=== PATIENT | female | born 1950 | race Caucasian/White ===

== ENCOUNTER 2017-06-24 21:18 | Observation (INO) | payer MEDICARE ==
[2017-06-24] MEDS ORDERED: methylPREDNISolone 125 MG* 2 ML VIAL IV ONE (23:31)
[2017-06-24] MEDS ORDERED: Albuterol/Ipratropium NEB.SOL* Albuterol 2.5 MG/Ipratropium 0.5 MG 3 ML INH ONE (23:31)
[2017-06-25] MEDS ORDERED: Albuterol/Ipratropium NEB.SOL* Albuterol 2.5 MG/Ipratropium 0.5 MG 3 ML ONE (00:04)
[2017-06-25 00:12] LABS: Hematocrit 41 % (35-47); Hemoglobin 13.8 g/dl (12.0-16.0); Mean Corpuscular HGB Conc 33 g/dl (31-36); Mean Corpuscular Hemoglobin 28 pg (27-31); Mean Corpuscular Volume 85 fL (80-97); Mean Platelet Volume 9 um3 (7.4-10.4); Red Blood Count 4.85 10^6/ul (4.0-5.4); Red Cell Distribution Width 14 % (10.5-15); White Blood Count 6.8 10^3/ul (3.5-10.8)
[2017-06-25 00:27] LABS: Albumin 4.2 g/dL (3.2-5.2); BUN/Creatinine Ratio 12.3 (8-20); Calcium 9.3 mg/dL (8.6-10.3); EGFR Non-African American 79.3 (>60); Globulin 2.8 g/dL (2-4); Potassium 3.6 mmol/L (3.5-5.0); Total Bilirubin 0.4 mg/dL (0.2-1.0)
[2017-06-25 00:31] LABS: Troponin I 0.02 ng/mL (<0.04)
[2017-06-25 01:09] LABS: Urine Bilirubin Negative (Negative); Urine Glucose Negative (Negative); Urine Nitrite Negative (Negative)
[2017-06-25] MEDS ORDERED: Ondansetron INJ* 2 MG/ML VIAL IV PRN (01:49)
[2017-06-25] MEDS ORDERED: CMCS: Melatonin (NF) 3 MG TAB PO PRN (01:49)
[2017-06-25] MEDS ORDERED: Morphine INJ* 2 MG/ML 1 ML SYRINGE (TWO MG - NEW SYRINGE VERSION) IV PRN (01:49)
[2017-06-25] MEDS ORDERED: Albuterol 2.5 MG/3 ML NEB.SOL* (0.083%) INH PRN (01:49)
--- NOTE | 2017-06-25 02:09 | ED ---
Prabhjot Mancia Tiffany, scribed for Ariel Evangelista on 06/24/17 at 2334 . Complex/Multi-Sys Presentation - HPI Summary HPI Summary: This patient is a 66 year old F presenting to [facility] accompanied by with a chief complaint of cough with no production since ten days ago. The patient rates the pain 8/10 in severity. Symptoms aggravated by nothing. Symptoms alleviated by nothing. Patient reports throat pain, shortness of breath and chest pain. Patient denies fever and leg swelling. The patient is in end stage pulmonary fibrosis. The patient uses an oxygen tank at home. - History Of Current Complaint Chief Complaint: EDUpperRespComplaint Time Seen by Provider: 06/24/17 23:21 Hx Obtained From: Patient Onset/Duration: Lasting Days - 10, Still Present Aggravating Factor(s): Nothing Alleviating Factor(s): Nothing Associated Signs And Symptoms: Positive: Other - throat pain, shortness of breath and chest pain; NEGATIVE: fever and leg swelling - Allergies/Home Medications Allergies/Adverse Reactions: Allergies Allergy/AdvReac Type Severity Reaction Status Date / Time No Known Allergies Allergy Verified 05/20/14 13:37 PMH/Surg Hx/FS Hx/Imm Hx Previously Healthy: No Endocrine/Hematology History: Denies: Hx Diabetes Cardiovascular History: Denies: Hx Congestive Heart Failure, Hx Hypertension Respiratory History: Reports: Other Respiratory Problems/Disorders - HX PULMONARY FIBROSIS GI History: Reports: Hx Gastroesophageal Reflux Disease History: Denies: Hx Renal Disease Musculoskeletal History: Reports: Other Musculoskeletal History Denies: Hx Rheumatoid Arthritis, Hx Osteoporosis Sensory History: Reports: Hx Cataracts Denies: Hx Contacts or Glasses, Hx Hearing Aid Opthamlomology History: Reports: Hx Cataracts Denies: Hx Contacts or Glasses Psychiatric History: Reports: Hx Depression - Surgical History Surgery Procedure, Year, and Place: TUBAL, HYSTERECTOMY [facility]. 2003 RIGHT CATARACT [facility]. BRONCHOSCOPY WITH BX STRONG 2009. RIGHT CTR [facility]. BUNIONECTOMY Hx Anesthesia Reactions: No - Immunization History Date of Tetanus Vaccine: UNSURE Date of Influenza Vaccine: 2012 Infectious Disease History: No Infectious Disease History: Denies: Traveled Outside the [place] in Last 30 Days - Family History Known Family History: Positive: None - None given - Social History Alcohol Use: Weekly Alcohol Amount: 3-4/WEEK Hx Substance Use: No Substance Use Type: Reports: None Hx Tobacco Use: Yes Smoking Status (MU): Former Smoker Review of Systems Negative: Fever Positive: Sore Throat Positive: Chest Pain Positive: Shortness Of Breath, Cough - With no production Negative: Edema All Other Systems Reviewed And Are Negative: Yes Physical Exam - Summary Physical Exam Summary: Appearance: Well appearing, no pain distress Skin: warm, dry, reflects adequate perfusion Head/face: normal Eyes: EOMI, JESSIKA ENT: normal Neck: supple, non-tender Respiratory: Bilateral coarse repetitions, occasional wheeze bilateral Cardiovascular: RRR, pulses symmetrical Abdomen: non-tender, soft Bowel: present Musculoskeletal: normal, strength/ROM intact Neuro: normal, sensory motor intact, A&Ox3 Triage Information Reviewed: Yes Vital Signs On Initial Exam: Initial Vitals Temp Pulse Resp BP Pulse Ox 97 F 80 18 146/85 94 06/24/17 21:43 06/24/17 21:43 06/24/17 21:43 06/24/17 21:43 06/24/17 21:43 Vital Signs Reviewed: Yes Diagnostics - Vital Signs Vital Signs Temp Pulse Resp BP Pulse Ox 06/24/17 21:43 97 F 80 18 146/85 94 - Laboratory Lab Results: Lab Results 06/25/17 06/25/17 06/25/17 Range/Units 00:01 00:01 00:01 WBC 6.8 (3.5-10.8) 10^3/ul RBC 4.85 (4.0-5.4) 10^6/ul Hgb 13.8 (12.0-16.0) g/dl Hct 41 (35-47) % MCV 85 (80-97) fL MCH 28 (27-31) pg MCHC 33 (31-36) g/dl RDW 14 (10.5-15) % Plt Count 139 L (150-450) 10^3/ul MPV 9 (7.4-10.4) um3 Neut % (Auto) 58.2 (38-83) % Lymph % (Auto) 29.9 (25-47) % Morgan % (Auto) 9.8 H (1-9) % Eos % (Auto) 1.6 (0-6) % Baso % (Auto) 0.5 (0-2) % Absolute Neuts (auto) 4.0 (1.5-7.7) 10^3/ul Absolute Lymphs (auto) 2.0 (1.0-4.8) 10^3/ul Absolute Monos (auto) 0.7 (0-0.8) 10^3/ul Absolute Eos (auto) 0.1 (0-0.6) 10^3/ul Absolute Basos (auto) 0 (0-0.2) 10^3/ul Absolute Nucleated RBC 0 10^3/ul Nucleated RBC % 0.1 INR (Anticoag Therapy) (0.77-1.02) APTT (26.0-36.3) seconds D-Dimer, Quantitative (Less Than 230) ng/mL Sodium 138 (133-145) mmol/L Potassium 3.6 (3.5-5.0) mmol/L Chloride 103 (101-111) mmol/L Carbon Dioxide 28 (22-32) mmol/L Anion Gap 7 (2-11) mmol/L BUN 9 (6-24) mg/dL Creatinine 0.73 (0.51-0.95) mg/dL Est GFR ( Amer) 102.0 (>60) Est GFR (Non-Af Amer) 79.3 (>60) BUN/Creatinine Ratio 12.3 (8-20) Glucose 82 (70-100) mg/dL Lactic Acid (0.5-2.0) mmol/L Calcium 9.3 (8.6-10.3) mg/dL Total Bilirubin 0.40 (0.2-1.0) mg/dL AST 26 (13-39) U/L ALT 13 (7-52) U/L Alkaline Phosphatase 82 (34-104) U/L Troponin I 0.02 (<0.04) ng/mL B-Natriuretic Peptide 84 ( - 100) pg/mL Total Protein 7.0 (6.4-8.9) g/dL Albumin 4.2 (3.2-5.2) g/dL Globulin 2.8 (2-4) g/dL Albumin/Globulin Ratio 1.5 (1-3) Urine Color Urine Appearance Urine pH (5-9) Ur Specific [place] (1.010-1.030) Urine Protein (Negative) Urine Ketones (Negative) Urine Blood (Negative) Urine Nitrate (Negative) Urine Bilirubin (Negative) Urine Urobilinogen (Negative) Ur Leukocyte Esterase (Negative) Urine Glucose (Negative) 12/18/17 12/18/17 12/18/17 Range/Units 00:01 00:01 00:41 WBC (3.5-10.8) 10^3/ul RBC (4.0-5.4) 10^6/ul Hgb (12.0-16.0) g/dl Hct (35-47) % MCV (80-97) fL MCH (27-31) pg MCHC (31-36) g/dl RDW (10.5-15) % Plt Count (150-450) 10^3/ul MPV (7.4-10.4) um3 Neut % (Auto) (38-83) % Lymph % (Auto) (25-47) % Morgan % (Auto) (1-9) % Eos % (Auto) (0-6) % Baso % (Auto) (0-2) % Absolute Neuts (auto) (1.5-7.7) 10^3/ul Absolute Lymphs (auto) (1.0-4.8) 10^3/ul Absolute Monos (auto) (0-0.8) 10^3/ul Absolute Eos (auto) (0-0.6) 10^3/ul Absolute Basos (auto) (0-0.2) 10^3/ul Absolute Nucleated RBC 10^3/ul Nucleated RBC % INR (Anticoag Therapy) 0.96 (0.77-1.02) APTT 36.6 H (26.0-36.3) seconds D-Dimer, Quantitative < 200 (Less Than 230) ng/mL Sodium (133-145) mmol/L Potassium (3.5-5.0) mmol/L Chloride (101-111) mmol/L Carbon Dioxide (22-32) mmol/L Anion Gap (2-11) mmol/L BUN (6-24) mg/dL Creatinine (0.51-0.95) mg/dL Est GFR ( Amer) (>60) Est GFR (Non-Af Amer) (>60) BUN/Creatinine Ratio (8-20) Glucose (70-100) mg/dL Lactic Acid 1.1 (0.5-2.0) mmol/L Calcium (8.6-10.3) mg/dL Total Bilirubin (0.2-1.0) mg/dL AST (13-39) U/L ALT (7-52) U/L Alkaline Phosphatase (34-104) U/L Troponin I (<0.04) ng/mL B-Natriuretic Peptide ( - 100) pg/mL Total Protein (6.4-8.9) g/dL Albumin (3.2-5.2) g/dL Globulin (2-4) g/dL Albumin/Globulin Ratio (1-3) Urine Color Colorless Urine Appearance Clear Urine pH 6.0 (5-9) Ur Specific [place] 1.003 L (1.010-1.030) Urine Protein Negative (Negative) Urine Ketones Negative (Negative) Urine Blood Negative (Negative) Urine Nitrate Negative (Negative) Urine Bilirubin Negative (Negative) Urine Urobilinogen Negative (Negative) Ur Leukocyte Esterase Negative (Negative) Urine Glucose Negative (Negative) Result Diagrams: 06/25/17 00:01 06/25/17 00:01 Lab Statement: Any lab studies that have been ordered have been reviewed, and results considered in the medical decision making process. - Radiology CXR Radiology Interpretation Completed By: ED Physician - Bilateral intra fibrosis - EKG 23:52 Cardiac Rate: NL EKG Rhythm: Sinus Rhythm - 86 BPM EKG Interpretation: No acute changes Complex Multi-Symp Course/Dx Course Of Treatment: This patient is a 66 year old F presenting to [facility] accompanied by with a chief complaint of cough with no production since ten days ago. . An EKG reveals sinus rhythm 86 BPM and no acute changes. CXR reveals, per ED physician, bilateral intra fibrosis. Bloodwork/UA obtained. In the ED course the patient was given Duoneb and Solu-Medrol. I consulted with hospitalist who agreed to admit the patient. The patient is agreeable with this plan. - Diagnoses Differential Diagnoses/HQI/PQRI: Aspiration, Sepsis, Other - pulmonary fibrosis , dysphnea, resp failure, hypoxia Provider Diagnoses: Pulmonary fibrosis, Dyspnea, Hypoxia - Physician Notifications Discussed Care Of Patient With: Joshua Shaffer Time Discussed With Above Provider: 01:02 Instructed by Provider To: Other - Dr. Shaffer (hospitalist) agreed to admit the patient. Discharge - Discharge Plan Condition: Fair Disposition: ADMITTED TO [facility] The documentation as recorded by the Prabhjot renteria Tiffany accurately reflects the service I personally performed and the decisions made by me, Ariel Evangelista.
[2017-06-25] MEDS ORDERED: Lidocaine 2% VISCOUS* 15 ML UDC PO ONE (03:00)
[2017-06-25] MEDS ORDERED: Al Hydrox/Mg Hydrox/Simet LIQ* 30 ML UDC PO ONE (03:00)
[2017-06-25] MEDS: NS 0.9% 1000 ML* 1,000 ML IV SCH ×2 (03:07→15:37)
[2017-06-25] MEDS: Acetaminophen TAB* 325 MG PO PRN ×4 (03:41→22:15)
[2017-06-25] MEDS ORDERED: Benzocaine/Menthol LOZ* 1 LOZENGE PO PRN (04:46)
[2017-06-25] MEDS: Omeprazole CAP* 20 MG PO SCH (04:59)
[2017-06-25] MEDS: Phenol 1.4% Spray* 177 ML BTL MT PRN ×3 (04:59→09:44)
--- NOTE | 2017-06-25 06:11 | HP ---
H&P (Free Text) History and Physical: PCP: Elton Vital MD Pulmonology: Natasha Garay MD Date/Time: 06/25/2017 0142 CC: SOB HPI: Mrs Maurer is a 66F HX end-stage pulmonary fibrosis on 3L [place] oxygen continuously presents with 2 weeks of intractable cough, increasing exertional dyspnea, and generalized weakness. Cough is non-productive. She does admit to a "flu" that went through her family 2-3 weeks ago. She has emesis only with coughing fits, head congestion, & fatigue, but denies F/C, sweats, nausea, change in bowel/bladder, chest pain, palpitations, or other issues. She reports that steroids usually work well. PMedHx end-stage pulmonary fibrosis GERD depression osteoporosis Ambulatory Orders Albuterol Sulfate [Ventolin Hfa] 44 mcg INH Q4HR PRN 07/27/13 Budesonide/Formote 160/4.5(NF) [Symbicort 160/4.5 (NF)] 2 puff INH BID 07/27/13 Omeprazole 20 mg PO QAM 07/27/13 Prednisone 60 mg PO DAILY 07/27/13 Sertraline HCl 150 mg PO QPM 07/27/13 Lactobacillus [Probiotic] 1 cap PO QAM 05/14/14 Risedronate Sodium [Actonel] 1 tab PO WEEKLY 05/14/14 Sulfamethox/Trimethoprim DS* [Bactrim DS 800/160 TAB*] 1 tab PO SEE INSTRUCTIONS 05/14/14 Allergies No Known Allergies Allergy (Verified 05/20/14 13:37) PSurgHx OU cataract extractions hysterectomy bunionectomy SocHx: no tobacco, 3-4 glasses wine/week, no recreational drugs; lives with her ; DNR/I code status FamHx: reviewed, non-contributory ROS: as above, otherwise reviewed and all were negative vitals: Vital Signs Temp 36.6 C 06/25/17 03:18 Pulse 97 06/25/17 03:18 Resp 22 06/25/17 03:18 BP 143/79 06/25/17 03:18 Pulse Ox 95 06/25/17 03:18 Intake & Output 06/24/17 06/24/17 06/25/17 11:59 23:59 11:59 Intake Total 240 Output Total 650 Balance -410 Weight 56.699 kg 56.699 kg Intake: Oral 240 Output: Urine 650 Constitutional: NAD, normally developed, well-nourished white female HEENM: atraumatic; sclera/conjunctiva: anicteric/clear; hearing: clinically intact; oropharynx: clear, mucosa moist Neck: soft tissue: non-tender; thyroid: normal Pulmonary: diffuse mild crackles, fair aeration, no accessory muscle use CV: RR/RR, normal S1S2, no carotid bruit, no jugular venous distention, 2+ B DP/ PT, no edema Abdominal: soft, non-distended, non-tender, no rebound/guarding/rigidity, normoactive bowel sounds, no hepatosplenomegaly or masses, no costovertebral angle tenderness Musculoskeletal: general: grossly intact; gait: stable Integumental: normal appearance and texture of exposed skin Psychiatric orientation: AA&O to PPS affect: calm mood: pleasant eye contact: good content: reliable responses: timely insight: good Testing: Lab Results 06/25/17 06/25/17 06/25/17 Range/Units 00:01 00:01 00:01 WBC 6.8 (3.5-10.8) 10^3/ul RBC 4.85 (4.0-5.4) 10^6/ul Hgb 13.8 (12.0-16.0) g/dl Hct 41 (35-47) % MCV 85 (80-97) fL MCH 28 (27-31) pg MCHC 33 (31-36) g/dl RDW 14 (10.5-15) % Plt Count 139 L (150-450) 10^3/ul MPV 9 (7.4-10.4) um3 Neut % (Auto) 58.2 (38-83) % Lymph % (Auto) 29.9 (25-47) % Jennings % (Auto) 9.8 H (1-9) % Eos % (Auto) 1.6 (0-6) % Baso % (Auto) 0.5 (0-2) % Absolute Neuts (auto) 4.0 (1.5-7.7) 10^3/ul Absolute Lymphs (auto) 2.0 (1.0-4.8) 10^3/ul Absolute Monos (auto) 0.7 (0-0.8) 10^3/ul Absolute Eos (auto) 0.1 (0-0.6) 10^3/ul Absolute Basos (auto) 0 (0-0.2) 10^3/ul Absolute Nucleated RBC 0 10^3/ul Nucleated RBC % 0.1 INR (Anticoag Therapy) (0.77-1.02) APTT (26.0-36.3) seconds D-Dimer, Quantitative (Less Than 230) ng/mL Sodium 138 (133-145) mmol/L Potassium 3.6 (3.5-5.0) mmol/L Chloride 103 (101-111) mmol/L Carbon Dioxide 28 (22-32) mmol/L Anion Gap 7 (2-11) mmol/L BUN 9 (6-24) mg/dL Creatinine 0.73 (0.51-0.95) mg/dL Est GFR ( Amer) 102.0 (>60) Est GFR (Non-Af Amer) 79.3 (>60) BUN/Creatinine Ratio 12.3 (8-20) Glucose 82 (70-100) mg/dL Lactic Acid (0.5-2.0) mmol/L Calcium 9.3 (8.6-10.3) mg/dL Total Bilirubin 0.40 (0.2-1.0) mg/dL AST 26 (13-39) U/L ALT 13 (7-52) U/L Alkaline Phosphatase 82 (34-104) U/L Troponin I 0.02 (<0.04) ng/mL B-Natriuretic Peptide 84 ( - 100) pg/mL Total Protein 7.0 (6.4-8.9) g/dL Albumin 4.2 (3.2-5.2) g/dL Globulin 2.8 (2-4) g/dL Albumin/Globulin Ratio 1.5 (1-3) Urine Color Urine Appearance Urine pH (5-9) Ur Specific [place]ol[place] (1.010-1.030) Urine Protein (Negative) Urine Ketones (Negative) Urine Blood (Negative) Urine Nitrate (Negative) Urine Bilirubin (Negative) Urine Urobilinogen (Negative) Ur Leukocyte Esterase (Negative) Urine Glucose (Negative) Influenza A (Rapid) (Negative) Influenza B (Rapid) (Negative) 12/18/17 12/18/17 12/18/17 Range/Units 00:01 00:01 00:41 WBC (3.5-10.8) 10^3/ul RBC (4.0-5.4) 10^6/ul Hgb (12.0-16.0) g/dl Hct (35-47) % MCV (80-97) fL MCH (27-31) pg MCHC (31-36) g/dl RDW (10.5-15) % Plt Count (150-450) 10^3/ul MPV (7.4-10.4) um3 Neut % (Auto) (38-83) % Lymph % (Auto) (25-47) % Jennings % (Auto) (1-9) % Eos % (Auto) (0-6) % Baso % (Auto) (0-2) % Absolute Neuts (auto) (1.5-7.7) 10^3/ul Absolute Lymphs (auto) (1.0-4.8) 10^3/ul Absolute Monos (auto) (0-0.8) 10^3/ul Absolute Eos (auto) (0-0.6) 10^3/ul Absolute Basos (auto) (0-0.2) 10^3/ul Absolute Nucleated RBC 10^3/ul Nucleated RBC % INR (Anticoag Therapy) 0.96 (0.77-1.02) APTT 36.6 H (26.0-36.3) seconds D-Dimer, Quantitative < 200 (Less Than 230) ng/mL Sodium (133-145) mmol/L Potassium (3.5-5.0) mmol/L Chloride (101-111) mmol/L Carbon Dioxide (22-32) mmol/L Anion Gap (2-11) mmol/L BUN (6-24) mg/dL Creatinine (0.51-0.95) mg/dL Est GFR ( Amer) (>60) Est GFR (Non-Af Amer) (>60) BUN/Creatinine Ratio (8-20) Glucose (70-100) mg/dL Lactic Acid 1.1 (0.5-2.0) mmol/L Calcium (8.6-10.3) mg/dL Total Bilirubin (0.2-1.0) mg/dL AST (13-39) U/L ALT (7-52) U/L Alkaline Phosphatase (34-104) U/L Troponin I (<0.04) ng/mL B-Natriuretic Peptide ( - 100) pg/mL Total Protein (6.4-8.9) g/dL Albumin (3.2-5.2) g/dL Globulin (2-4) g/dL Albumin/Globulin Ratio (1-3) Urine Color Colorless Urine Appearance Clear Urine pH 6.0 (5-9) Ur Specific [place] 1.003 L (1.010-1.030) Urine Protein Negative (Negative) Urine Ketones Negative (Negative) Urine Blood Negative (Negative) Urine Nitrate Negative (Negative) Urine Bilirubin Negative (Negative) Urine Urobilinogen Negative (Negative) Ur Leukocyte Esterase Negative (Negative) Urine Glucose Negative (Negative) Influenza A (Rapid) (Negative) Influenza B (Rapid) (Negative) 06/25/17 Range/Units 02:35 WBC (3.5-10.8) 10^3/ul RBC (4.0-5.4) 10^6/ul Hgb (12.0-16.0) g/dl Hct (35-47) % MCV (80-97) fL MCH (27-31) pg MCHC (31-36) g/dl RDW (10.5-15) % Plt Count (150-450) 10^3/ul MPV (7.4-10.4) um3 Neut % (Auto) (38-83) % Lymph % (Auto) (25-47) % [place] % (Auto) (1-9) % Eos % (Auto) (0-6) % Baso % (Auto) (0-2) % Absolute Neuts (auto) (1.5-7.7) 10^3/ul Absolute Lymphs (auto) (1.0-4.8) 10^3/ul Absolute Monos (auto) (0-0.8) 10^3/ul Absolute Eos (auto) (0-0.6) 10^3/ul Absolute Basos (auto) (0-0.2) 10^3/ul Absolute Nucleated RBC 10^3/ul Nucleated RBC % INR (Anticoag Therapy) (0.77-1.02) APTT (26.0-36.3) seconds D-Dimer, Quantitative (Less Than 230) ng/mL Sodium (133-145) mmol/L Potassium (3.5-5.0) mmol/L Chloride (101-111) mmol/L Carbon Dioxide (22-32) mmol/L Anion Gap (2-11) mmol/L BUN (6-24) mg/dL Creatinine (0.51-0.95) mg/dL Est GFR ( Amer) (>60) Est GFR (Non-Af Amer) (>60) BUN/Creatinine Ratio (8-20) Glucose (70-100) mg/dL Lactic Acid (0.5-2.0) mmol/L Calcium (8.6-10.3) mg/dL Total Bilirubin (0.2-1.0) mg/dL AST (13-39) U/L ALT (7-52) U/L Alkaline Phosphatase (34-104) U/L Troponin I (<0.04) ng/mL B-Natriuretic Peptide ( - 100) pg/mL Total Protein (6.4-8.9) g/dL Albumin (3.2-5.2) g/dL Globulin (2-4) g/dL Albumin/Globulin Ratio (1-3) Urine Color Urine Appearance Urine pH (5-9) Ur Specific [place] (1.010-1.030) Urine Protein (Negative) Urine Ketones (Negative) Urine Blood (Negative) Urine Nitrate (Negative) Urine Bilirubin (Negative) Urine Urobilinogen (Negative) Ur Leukocyte Esterase (Negative) Urine Glucose (Negative) Influenza A (Rapid) Negative (Negative) Influenza B (Rapid) Negative (Negative) ECG, personally reviewed: NSR rate 86, no ischemia CXR, personally reviewed: diffuse infiltrates B w/o recent comparison CXR Impression: 66F HX end-stage pulmonary fibrosis presents with 2weeks increased non-productive cough, increased SOB, & new hypoxia on 3L NC DIAGNOSIS & PLAN Primary pulmonary fibrosis : albuterol nebs : mometasone/formoterol : tiotropium : IV methylprednisolone : supplemental oxygen : no clear indication for ABX : trend temperature & CBC : supportive care : consider pulmonology consult in AM Secondary GERD : continue omeprazole depression : review meds once reconciled Admission Rational: observe for SOB & hypoxia in setting of end-stage pulmonary fibrosis DVTp: heparin Code Status: DNR/I HCP:
[2017-06-25 06:32] LABS: Hematocrit 37 % (35-47); Hemoglobin 12.4 g/dl (12.0-16.0); Mean Corpuscular HGB Conc 34 g/dl (31-36); Mean Corpuscular Hemoglobin 28 pg (27-31); Mean Corpuscular Volume 85 fL (80-97); Mean Platelet Volume 9 um3 (7.4-10.4); Red Blood Count 4.38 10^6/ul (4.0-5.4); Red Cell Distribution Width 13 % (10.5-15); White Blood Count 4.5 10^3/ul (3.5-10.8)
[2017-06-25] MEDS: Albuterol 2.5 MG/3 ML NEB.SOL* (0.083%) INH SCH ×3 (07:41→19:59)
--- NOTE | 2017-06-25 07:41 | RAD ---
INDICATION: Difficulty breathing. Requisition notes history of pulmonary fibrosis. COMPARISON: Chest x-ray dated July 26, 2013 TECHNIQUE: Single AP portable view of the chest was obtained. FINDINGS: Image quality is compromised due to the relative inferiority of a portable chest x-ray. There is mild cardiomegaly unchanged since the prior chest x-ray. There are patchy densities overlying the bilateral lungs and increased parenchymal density worse when compared to the prior chest x-ray. There is no focal or lobar consolidation. Visualized bones are normal for the patient's age. IMPRESSION: Worsening airspace disease could represent progression of pulmonary fibrosis and/or cardiogenic pulmonary edema on a background of underlying pulmonary fibrosis.
[2017-06-25] MEDS: Mometasone/Formoter 200/5 MDI INH SCH ×2 (07:44→20:01)
[2017-06-25] MEDS: Tiotropium CAP.INH* CAP.INH/18 MCG (USE ORDER SET !) INH SCH (07:45)
[2017-06-25] MEDS ORDERED: Spiriva Inhaler DEVICE* 1 EACH DEVICE INH ONE (09:00)
[2017-06-25] MEDS: guaiFENesin ER TAB 600 MG PO SCH ×2 (09:07→21:16)
[2017-06-25] MEDS: Benzonatate CAP* 100 MG PO SCH ×3 (09:07→21:18)
[2017-06-25] MEDS ORDERED: Codeine TAB* 15 MG PO ONE (12:25)
[2017-06-25] MEDS ORDERED: Codeine TAB* 30 MG PO ONE (12:25)
[2017-06-25] MEDS ORDERED: Codeine TAB* 30 MG ONE (12:41)
[2017-06-25] MEDS: methylPREDNISolone SOD 40 MG* 1 ML VIAL IV SCH ×2 (15:36→23:34)
--- NOTE | 2017-06-25 16:15 | PN ---
Subjective Date of Service: 06/25/17 Interval History: Cough continues today Throat pain +b/l headache, bitemporal, throbbing, no photo, phonophobia, no N/V Objective Active Medications: Acetaminophen (Tylenol Tab*) 975 mg PO Q6H PRN PRN Reason: FEVER/PAIN Last Admin: 06/25/17 15:35 Dose: 975 mg Albuterol (Ventolin 2.5 Mg/3 Ml Neb.Kendra*) 2.5 mg INH Q2H PRN PRN Reason: SOB/WHEEZING Albuterol (Ventolin 2.5 Mg/3 Ml Neb.Kendra*) 2.5 mg INH [id number] AWAKE [facility] Last Admin: 06/25/17 12:49 Dose: 2.5 mg Benzonatate (Tessalon Cap*) 100 mg PO TID [facility] Last Admin: 06/25/17 15:34 Dose: 100 mg Codeine Sulfate (Codeine Tab*) 15 mg PO Q6H PRN PRN Reason: cough Fluticasone Propionate (Flonase Nasal Rawlings 50mcg*) 2 spray BOTH NARES DAILY [facility] Guaifenesin (Mucinex*) 1,200 mg PO BID [facility] Last Admin: 06/25/17 09:07 Dose: 1,200 mg Heparin Sodium (Porcine) (Heparin Vial(*)) 5,000 units SUBCUT Q8HR [facility] Sodium Chloride (Ns 0.9% 1000 Ml*) 1,000 mls @ 75 mls/hr IV PER RATE [facility] Last Admin: 06/25/17 15:37 Dose: 75 mls/hr Lidocaine (Xylocaine 2% Viscous*) 20 ml PO TID PRN PRN Reason: PAIN Melatonin (Melatonin (Nf)) 3 mg PO BEDTIME PRN; Protocol PRN Reason: Sleep Methylprednisolone Sodium Succinate (Solu-Medrol 40 Mg) 40 mg IV Q8H [facility] Last Admin: 06/25/17 15:36 Dose: 40 mg Mometasone Furoate/Formoterol Fumar (Dulera 200/5 Mdi*) 2 puff INH BID [facility] Last Admin: 06/25/17 07:44 Dose: 2 puff Morphine Sulfate (Morphine Inj (Syringe)*) 2 mg IV Q4H PRN PRN Reason: SOB/air hunger Omeprazole (Prilosec Cap*) 20 mg PO DAILY@0600 [facility] Last Admin: 06/25/17 04:59 Dose: 20 mg Ondansetron HCl (Zofran Inj*) 4 mg IV Q6H PRN PRN Reason: NAUSEA Phenol/Menthol (Chloroseptic Throat Rawlings*) 1 spray MT Q2H PRN PRN Reason: SORE THROAT Last Admin: 06/25/17 09:44 Dose: 1 spray Throat Lozenges (Chloraseptic Riley*) 1 riley PO Q2H PRN PRN Reason: SORE THROAT Last Admin: 06/25/17 04:59 Dose: 1 riley Tiotropium [place] (Spiriva Cap.Inh*) 1 cap INH DAILY [facility] Last Admin: 06/25/17 07:45 Dose: 1 cap Vital Signs - 8 hr 06/25/17 06/25/17 06/25/17 11:45 12:44 12:49 Temperature 98.2 F Pulse Rate 84 85 Respiratory 18 22 17 Rate Blood Pressure 133/69 (mmHg) O2 Sat by Pulse 96 94 Oximetry 06/25/17 06/25/17 15:27 15:38 Temperature 98.1 F Pulse Rate 83 Respiratory 18 16 Rate Blood Pressure 160/77 (mmHg) O2 Sat by Pulse 94 Oximetry Oxygen Devices in Use Now: Nasal Cannula Appearance: older than stated age, NAD Eyes: No Scleral Icterus, PERRLA Ears/Nose/Mouth/Throat: Clear Oropharnyx, Mucous Membranes Moist Neck: NL Appearance and Movements; NL JVP, Trachea Midline Respiratory: Symmetrical Chest Expansion and Respiratory Effort, - - fine rales b/l bases up 1/2 Cardiovascular: NL Sounds; No Murmurs; No JVD, RRR Abdominal: NL Sounds; No Tenderness; No Distention, No Hepatosplenomegaly Lymphatic: No Cervical Adenopathy Skin: No Rash or Ulcers Neurological: Alert and Oriented x 3 Result Diagrams: 06/25/17 06:22 06/25/17 00:01 Additional Lab and Data: Lab Results 06/25/17 06/25/17 06/25/17 Range/Units 00:01 00:01 00:01 WBC 6.8 (3.5-10.8) 10^3/ul RBC 4.85 (4.0-5.4) 10^6/ul Hgb 13.8 (12.0-16.0) g/dl Hct 41 (35-47) % MCV 85 (80-97) fL MCH 28 (27-31) pg MCHC 33 (31-36) g/dl RDW 14 (10.5-15) % Plt Count 139 L (150-450) 10^3/ul MPV 9 (7.4-10.4) um3 Neut % (Auto) 58.2 (38-83) % Lymph % (Auto) 29.9 (25-47) % [place] % (Auto) 9.8 H (1-9) % Eos % (Auto) 1.6 (0-6) % Baso % (Auto) 0.5 (0-2) % Absolute Neuts (auto) 4.0 (1.5-7.7) 10^3/ul Absolute Lymphs (auto) 2.0 (1.0-4.8) 10^3/ul Absolute Monos (auto) 0.7 (0-0.8) 10^3/ul Absolute Eos (auto) 0.1 (0-0.6) 10^3/ul Absolute Basos (auto) 0 (0-0.2) 10^3/ul Absolute Nucleated RBC 0 10^3/ul Nucleated RBC % 0.1 INR (Anticoag Therapy) (0.77-1.02) APTT (26.0-36.3) seconds D-Dimer, Quantitative (Less Than 230) ng/mL Sodium 138 (133-145) mmol/L Potassium 3.6 (3.5-5.0) mmol/L Chloride 103 (101-111) mmol/L Carbon Dioxide 28 (22-32) mmol/L Anion Gap 7 (2-11) mmol/L BUN 9 (6-24) mg/dL Creatinine 0.73 (0.51-0.95) mg/dL Est GFR ( Amer) 102.0 (>60) Est GFR (Non-Af Amer) 79.3 (>60) BUN/Creatinine Ratio 12.3 (8-20) Glucose 82 (70-100) mg/dL Lactic Acid (0.5-2.0) mmol/L Calcium 9.3 (8.6-10.3) mg/dL Total Bilirubin 0.40 (0.2-1.0) mg/dL AST 26 (13-39) U/L ALT 13 (7-52) U/L Alkaline Phosphatase 82 (34-104) U/L Troponin I 0.02 (<0.04) ng/mL B-Natriuretic Peptide 84 ( - 100) pg/mL Total Protein 7.0 (6.4-8.9) g/dL Albumin 4.2 (3.2-5.2) g/dL Globulin 2.8 (2-4) g/dL Albumin/Globulin Ratio 1.5 (1-3) Urine Color Urine Appearance Urine pH (5-9) Ur Specific [place] (1.010-1.030) Urine Protein (Negative) Urine Ketones (Negative) Urine Blood (Negative) Urine Nitrate (Negative) Urine Bilirubin (Negative) Urine Urobilinogen (Negative) Ur Leukocyte Esterase (Negative) Urine Glucose (Negative) 06/25/17 06/25/17 06/25/17 Range/Units 00:01 00:01 00:41 WBC (3.5-10.8) 10^3/ul RBC (4.0-5.4) 10^6/ul Hgb (12.0-16.0) g/dl Hct (35-47) % MCV (80-97) fL MCH (27-31) pg MCHC (31-36) g/dl RDW (10.5-15) % Plt Count (150-450) 10^3/ul MPV (7.4-10.4) um3 Neut % (Auto) (38-83) % Lymph % (Auto) (25-47) % [place] % (Auto) (1-9) % Eos % (Auto) (0-6) % Baso % (Auto) (0-2) % Absolute Neuts (auto) (1.5-7.7) 10^3/ul Absolute Lymphs (auto) (1.0-4.8) 10^3/ul Absolute Monos (auto) (0-0.8) 10^3/ul Absolute Eos (auto) (0-0.6) 10^3/ul Absolute Basos (auto) (0-0.2) 10^3/ul Absolute Nucleated RBC 10^3/ul Nucleated RBC % INR (Anticoag Therapy) 0.96 (0.77-1.02) APTT 36.6 H (26.0-36.3) seconds D-Dimer, Quantitative < 200 (Less Than 230) ng/mL Sodium (133-145) mmol/L Potassium (3.5-5.0) mmol/L Chloride (101-111) mmol/L Carbon Dioxide (22-32) mmol/L Anion Gap (2-11) mmol/L BUN (6-24) mg/dL Creatinine (0.51-0.95) mg/dL Est GFR ( Amer) (>60) Est GFR (Non-Af Amer) (>60) BUN/Creatinine Ratio (8-20) Glucose (70-100) mg/dL Lactic Acid 1.1 (0.5-2.0) mmol/L Calcium (8.6-10.3) mg/dL Total Bilirubin (0.2-1.0) mg/dL AST (13-39) U/L ALT (7-52) U/L Alkaline Phosphatase (34-104) U/L Troponin I (<0.04) ng/mL B-Natriuretic Peptide ( - 100) pg/mL Total Protein (6.4-8.9) g/dL Albumin (3.2-5.2) g/dL Globulin (2-4) g/dL Albumin/Globulin Ratio (1-3) Urine Color Colorless Urine Appearance Clear Urine pH 6.0 (5-9) Ur Specific [place] 1.003 L (1.010-1.030) Urine Protein Negative (Negative) Urine Ketones Negative (Negative) Urine Blood Negative (Negative) Urine Nitrate Negative (Negative) Urine Bilirubin Negative (Negative) Urine Urobilinogen Negative (Negative) Ur Leukocyte Esterase Negative (Negative) Urine Glucose Negative (Negative) Microbiology and Other Data: Microbiology 06/25/17 02:30 Influenza Types A,B Antigen (CURT) - Final Nasal Specimen received for Influenza A/B Molecular testing Assess/Plan/Problems-Billing Assessment: 66 yo F h/o pulmonary fibrosis (hypersensitivity pneumonitis) p/w cough x 12 days punctuated by increased SOB - Patient Problems (1) Hypersensitivity pneumonitis Comment: with acute exacerbation likely in setting of viral illness PFTs showed e/o airway reversibility, albuterol as needed c/w steroids today but plan on taper tomorrow (2) Chronic respiratory failure Comment: c/w 3L o2 (3) Cough Comment: codeine, lidocaine, tessalon (4) DVT prophylaxis Comment: lovenox
[2017-06-25] MEDS: Fluticasone NASAL SPRAY 50MCG* 16 gm SPRAY BTL BOTH NARES SCH (16:49)
[2017-06-25] MEDS: Lidocaine 2% VISCOUS* 15 ML UDC PO PRN ×2 (16:52→22:18)
[2017-06-25] MEDS ORDERED: Enoxaparin(*) 40 MG/0.4 ML SYR SUBCUT SCH (17:00)
[2017-06-25] MEDS ORDERED: Sertraline* 50 MG TAB PO SCH (18:00)
[2017-06-25] MEDS: Codeine TAB* 15 MG PO PRN (21:18)
[2017-06-25] MEDS ORDERED: ALPRAZolam TAB* 0.5 MG PO PRN (23:46)
[2017-06-26] MEDS: Artificial Tears* 15 ML BTL BOTH EYES PRN ×3 (00:25→08:51)
[2017-06-26] MEDS: Albuterol 2.5 MG/3 ML NEB.SOL* (0.083%) INH SCH ×3 (01:20→13:10)
[2017-06-26] MEDS: NS 0.9% 1000 ML* 1,000 ML IV SCH (04:35)
[2017-06-26] MEDS: Acetaminophen TAB* 325 MG PO PRN (04:36)
[2017-06-26] MEDS: Codeine TAB* 15 MG PO PRN (04:37)
[2017-06-26] MEDS ORDERED: Heparin VIAL(*) 5000 UNITS/ML VIAL (FIVE THOUSAND) SUBCUT SCH (06:00)
[2017-06-26] MEDS ORDERED: methylPREDNISolone SOD 40 MG* 1 ML VIAL IV SCH (08:00)
[2017-06-26] MEDS: Mometasone/Formoter 200/5 MDI INH SCH (08:06)
[2017-06-26] MEDS: Tiotropium CAP.INH* CAP.INH/18 MCG (USE ORDER SET !) INH SCH (08:06)
[2017-06-26] MEDS: Benzonatate CAP* 100 MG PO SCH (08:44)
[2017-06-26] MEDS: Omeprazole CAP* 20 MG PO SCH (08:44)
[2017-06-26] MEDS: guaiFENesin ER TAB 600 MG PO SCH (08:44)
[2017-06-26] MEDS: methylPREDNISolone SOD 40 MG* 1 ML VIAL IV SCH (08:49)
[2017-06-26] MEDS: Fluticasone NASAL SPRAY 50MCG* 16 gm SPRAY BTL BOTH NARES SCH (08:50)
[2017-06-26 12:56] VITALS: BP 130/76
--- NOTE | 2017-06-27 03:52 | DS ---
CC: Dr. Vital; Dr. Garay * DISCHARGE SUMMARY: DATE OF ADMISSION: 06/25/17 DATE OF DISCHARGE: 06/26/17 PRIMARY CARE PROVIDERS: Dr. Jaida Vital and Dr. Garay. PRIMARY DIAGNOSIS: Bronchitis. SECONDARY DIAGNOSES: Include: 1. Pulmonary fibrosis/hypersensitivity pneumonitis with chronic respiratory failure, requiring 3 L oxygen. 2. Gastroesophageal reflux disease. 3. Anxiety/depression. 4. Osteoporosis. MEDICATIONS AT DISCHARGE: Include: 1. Omeprazole 20 mg in the morning. 2. Probiotic 1 tablet daily. 3. Symbicort 160/4.5 two puffs twice daily. 4. Sertraline 150 mg in the evening. 5. Risedronate 1 tab weekly. 6. Prednisone 50 mg daily for 5 additional days. 7. Guaifenesin ER 1200 mg twice daily. 8. Fluticasone 2 sprays both nares twice daily. 9. Tessalon caps 100 mg 3 times daily for 5 additional days. 10. Combivent one inhalation every 4 hours as needed for shortness of breath. PERTINENT IMAGING STUDIES: Chest x-ray on presentation, worsening airspace disease, could represent a progression of pulmonary fibrosis and/or cardiogenic pulmonary edema on a background of underlying pulmonary fibrosis. PERTINENT LABORATORY DATA: White blood cell count 6.8 on presentation and 4.5 on discharge. D-dimer less than 200. BNP 84. Lactic acid 1.1. Influenza A and B are negative. HISTORY OF PRESENT ILLNESS AND HOSPITAL COURSE: This is a 66-year-old female with past medical history of hypersensitivity pneumonitis with restrictive lung profile on PFTs, although some evidence of airway reversibility with bronchodilators complicated by chronic respiratory failure and had increasing shortness of breath over the last several weeks, treated with azithromycin and steroids, had no improvement, presented to the hospital with increasing cough as well as shortness of breath. She notes that her cough is so bad, that her throat is significantly painful. She was admitted to the hospital. She also had noted that she had been around people that had previously been sick, but do not think that they were contagious anymore. In general, she tries to avoid public spaces to avoid farhat illnesses. On the first day of the hospital stay, her largest complaint was cough and sore throat. She was treated with codeine, viscous lidocaine, Tessalon caps, guaifenesin, so we will start her on fluticasone for sinus congestion. On the day of discharge was significantly improved. Her cough had resolved. She no longer had a sore throat and she felt her breathing was back to her baseline. I do suspect she had a viral upper respiratory tract infection, potentially lower airways involving to be classified as bronchitis, but I doubt she had pneumonia. She had no evidence of active bacterial infection. She will be discharged from 5 additional days of prednisone in addition to the 2 days of IV steroids received in the hospital in order to treat any active inflammation that may be residual from potentially viral source. At followup, please; 1. Evaluate for continued resolution, prolonged steroid course if necessary. 2. No other specific labs or vitals that need followup. Reasons to return to the hospital included but not limited to recurrent or worsening symptoms, worsening shortness of breath, chest pain, nausea, vomiting , lightheadedness, loss of consciousness, near loss of consciousness, bleeding from any source, or inability to obtain or tolerate medications discussed with the patient. She acknowledged understanding. TIME SPENT: Greater than 60 minutes was spent in the discharge of this patient , greater than half was spent [id number] with the patient. [id number] #: [id number] SOCRATES
== END 2017-06-26 13:40 | disposition home or self-care (01) ==
LOC: ED 21:18 → SSU 06-25 01:46
PROVIDERS: ADMIT Hospitalist; ATTEND Internal Medicine
DX: J84.10 Pulmonary fibrosis, unspecified (principal); K21.9 Gastro-esophageal reflux disease without esophagitis; F41.9 Anxiety disorder, unspecified; F32.9 Major depressive disorder, single episode, unspecified; M81.0 Age-related osteoporosis without current pathological fracture
CPT/HCPCS: 36415; 71010; 80053; 81003; 83605; 83880; 84484; 85025; 85379; 85610; 85730; 87502; 93005; 94640; 94760; 96361; 96365; 99284; A9270-GY; G0378; J1650; J2920; J2930

== ENCOUNTER 2017-10-31 10:09 | Inpatient (IN) | payer MEDICARE, BC ==
[2017-10-31] MEDS ORDERED: Albuterol/Ipratropium NEB.SOL* Albuterol 2.5 MG/Ipratropium 0.5 MG 3 ML INH PRN (13:24)
[2017-10-31] MEDS ORDERED: NS 0.9% 1000 ML* 1,000 ML IV SCH (13:45)
[2017-10-31] MEDS ORDERED: Zosyn per Pharmacy* NOTE FOLLOW UP SCH (14:00)
[2017-10-31] MEDS ORDERED: Piperacillin/Tazobac ADVAN(*) 3.375 GM in NS 0.9% 100 ML* 100 ML IVPB ONE (14:00)
[2017-10-31 14:07] LABS: Hematocrit 30 % (35-47); Mean Corpuscular HGB Conc 33 g/dl (31-36); Mean Corpuscular Hemoglobin 28 pg (27-31); Mean Corpuscular Volume 86 fL (80-97); Mean Platelet Volume 8.5 um3 (7.4-10.4); Platelet Count 125 10^3/ul (150-450); Red Blood Count 3.54 10^6/ul (4.0-5.4); Red Cell Distribution Width 14 % (10.5-15); White Blood Count 14.5 10^3/ul (3.5-10.8)
--- NOTE | 2017-10-31 14:13 | RAD ---
HISTORY: Pneumonia, history of pulmonary fibrosis COMPARISONS: June 24, 2017 VIEWS: 1: frontal portable view of the chest at 1:40 PM FINDINGS: LINES AND TUBES: None. CARDIOMEDIASTINAL SILHOUETTE: The cardiomediastinal silhouette is stable. PLEURA: The costophrenic angles are sharp. No pleural abnormalities are noted. LUNG PARENCHYMA: Again noted is diffuse coarse reticular opacification throughout both lungs. This is similar to the previous examination. ABDOMEN: The upper abdomen is clear. There is no subphrenic gas. BONES AND SOFT TISSUES: No bone or soft tissue abnormalities are noted. IMPRESSION: DIFFUSE INTERSTITIAL DISEASE, SIMILAR TO THE JUNE 24, 2017 EXAMINATION
[2017-10-31 14:24] LABS: EGFR Non-African American 111.9 (>60)
[2017-10-31] MEDS: Enoxaparin(*) 40 MG/0.4 ML SYR SUBCUT SCH (14:38)
[2017-10-31] MEDS: guaiFENesin/CODIEN 100MG-10MG* 5 ML UDC PO PRN ×2 (14:39→20:51)
[2017-10-31] MEDS: Albuterol/Ipratropium NEB.SOL* Albuterol 2.5 MG/Ipratropium 0.5 MG 3 ML INH SCH ×2 (14:53→20:32)
[2017-10-31] MEDS ORDERED: Vancomycin per Pharmacy* NOTE FOLLOW UP PRN (16:43)
--- NOTE | 2017-10-31 17:47 | HP ---
ADMISSION HISTORY AND PHYSICAL: DATE OF ADMISSION: 10/31/17 REASON FOR ADMISSION: Respiratory insufficiency. HISTORY OF PRESENT ILLNESS: This patient is a 67-year-old female with a history of pulmonary fibrosis who presented to [facility] yesterday with a 3 to 4 day history of increasing cough and shortness of breath. Pertinent positives while at the [facility] include a blood culture that was positive for gram-positive cocci, white count of 18.6, temp of 103.6. Chest x- ray showing bilateral infiltrates and lactic acid of 2.0, repeat 3.9 and arterial O2 saturation of 84% on 6 L nasal cannula. The patient had increasing oxygen requirements while at [place] and was transferred to the ICU at [facility]. Of note, the patient is being evaluated for a lung transplant at [facility], and is scheduled for a coronary artery stent on 11/02/17, in preparation for being placed on a transplant list. MEDICATIONS: Meds at [facility] include the followin. Azithromycin 500 mg IV once. 2. Ceftriaxone 1 g IV once. 3. Methylprednisolone 125 mg once. 4. DuoNeb inhalations q.6 hours. 5. Prednisone 10 mg p.o. t.i.d. 6. Pantoprazole 40 mg p.o. daily. 7. Symbicort 2 puffs twice daily. 8. Carisoprodol 350 mg daily. 9. Xanax 0.25 mg q.6 hours p.r.n. anxiety. ALLERGIES: There are no known drug allergies. REVIEW OF SYSTEMS: Noncontributory. PHYSICAL EXAMINATION GENERAL: The patient was tachypneic but was able to complete sentences. She did cough frequently duing the exam. VITAL SIGNS: Temp 98.2 (temporal), heart rate 85 and regular, respirations 26, O2 saturation 98% on OxyMask with O2 at 10 L per minute, blood pressure 113/50. HEENT: Oropharynx clear. No lymphadenopathy. NECK: Supple. THORAX: Diffuse crackles in both lungs posteriorly, without audible wheezes. CARDIAC: No murmurs or rubs appreciated. ABDOMEN: Not distended. EXTREMITIES: Warm, not cyanotic and not edematous. NEUROLOGIC: The patient was alert and oriented, and moved all extremities equally. DIAGNOSTIC STUDIES/LAB DATA: Hemoglobin of 10, white count 14.5, platelets 125 K. Sodium 142, potassium 3.6, chloride 111, CO2 26, BUN 12, creatinine 0.54 , glucose 84. Total protein 5.5, albumin 3.3. Liver enzymes normal. Chest x- ray showed diffuse infiltrates, mostly peribronchial. No prior film for comparison. ECG pending. IMPRESSION: This patient with advanced pulmonary interstitial fibrosis has apparently acquired a gram-positive community-acquired pneumonia. Considering the bacteremia, the stent placement scheduled for tomorrow will need to be postponed. MANAGEMENT PLAN: 1. Vancomycin, pending results of the blood cultures. 2. Maintain O2 sats in the low 90s and try to limit inhaled O2. 3. Reinstate the patient's chronic medications, including prednisone (will give at 40 mg daily). I have been in touch with the patient's [employer] program coordinator at [facility] (Alka Johnson), and will provide regular updates. No need for transfer to [facility] at this time. TIME SPENT: Critical care time: 60 minutes. [id number]/[facility] #: [id number] MTDYoselin
[2017-10-31] MEDS ORDERED: Piperacillin/Tazobactam 13.5 GM IV 24 hour continuous infusion IVPB SCH ×2 (18:00)
[2017-10-31] MEDS: Omeprazole CAP* 20 MG PO SCH (20:53)
[2017-10-31] MEDS ORDERED: Zolpidem TAB* 5 MG PO PRN (20:53)
[2017-10-31] MEDS ORDERED: Morphine VIAL* 4 MG/ML VIAL (1 ml vial) IV ONE (21:08)
[2017-10-31] MEDS: Sertraline* 50 MG TAB PO SCH (21:34)
[2017-10-31] MEDS ORDERED: Vancomycin(*) 1,000 MG in NS 0.9% 250 ML* 250 ML IVPB SCH (22:00)
[2017-10-31] MEDS: Morphine VIAL* 4 MG/ML VIAL (1 ml vial) IV PRN (23:50)
[2017-11-01] MEDS ORDERED: Benzocaine/Menthol LOZ* 1 LOZENGE MT PRN (01:53)
[2017-11-01] MEDS: Morphine VIAL* 4 MG/ML VIAL (1 ml vial) IV PRN ×3 (02:55→21:23)
[2017-11-01] MEDS: Albuterol/Ipratropium NEB.SOL* Albuterol 2.5 MG/Ipratropium 0.5 MG 3 ML INH SCH ×6 (03:24→20:00)
[2017-11-01] MEDS: guaiFENesin/CODIEN 100MG-10MG* 5 ML UDC PO PRN ×2 (04:56→12:34)
[2017-11-01 05:49] LABS: Hematocrit 33 % (35-47); Hemoglobin 11.1 g/dl (12.0-16.0); Mean Corpuscular HGB Conc 33 g/dl (31-36); Mean Corpuscular Hemoglobin 29 pg (27-31); Mean Corpuscular Volume 86 fL (80-97); Mean Platelet Volume 8.5 um3 (7.4-10.4); Platelet Count 142 10^3/ul (150-450); Red Blood Count 3.87 10^6/ul (4.0-5.4); Red Cell Distribution Width 14 % (10.5-15)
[2017-11-01 06:00] LABS: INR 0.93 (0.77-1.02)
[2017-11-01] MEDS: Montelukast Sodium TAB* 10 MG PO SCH (08:34)
[2017-11-01] MEDS: Omeprazole CAP* 20 MG PO SCH ×2 (08:34→21:23)
[2017-11-01] MEDS: Hydrochlorothiazide TAB* 25 MG PO SCH (08:34)
[2017-11-01] MEDS: Sertraline* 50 MG TAB PO SCH (08:34)
[2017-11-01] MEDS: Valsartan TAB* 160 MG PO SCH (08:34)
[2017-11-01] MEDS: predniSONE TAB* 20 MG PO SCH (08:35)
[2017-11-01] MEDS: ALPRAZolam TAB* 0.25 MG PO PRN ×2 (08:48→21:23)
[2017-11-01] MEDS ORDERED: Valsartan/HCTZ 160/12.5(NF) TAB PO SCH (09:00)
[2017-11-01] MEDS: cefTRIAXone(*) 2 GM in NS 0.9% 100 ML* 100 ML IVPB SCH (11:38)
[2017-11-01] MEDS: Enoxaparin(*) 40 MG/0.4 ML SYR SUBCUT SCH (14:39)
[2017-11-01] MEDS ORDERED: NS 0.9% 1000 ML* 1,000 ML IV SCH (16:07)
--- NOTE | 2017-11-01 16:08 | PN ---
Date of Service: 11/01/17 Critical Care Services: All blood cultures from yesterday growing Streptococcus pneumoniae - Is now on ceftriaxone (2 gm IV daily) - Since admission, O2 requirement has gone from 10 to 15 L/min, but clinical condition is otherwise unchanged. She continues to have a troublesome cough. Vital Signs: Temp Pulse Resp BP SpO2 FiO2 97.4 F 84 22 125/86 93 15L/m Physical Exam: Gen:Alert, oriented. Tachypneic, but not "in extremis" Lungs: crackles throughout both lungs Cardiac: Reg rhythm Abdomen: Not distended. Extremities: Warm. No cyanosis or edema. Fluid Balance (Past 24 Hours): 11/01/17 06:59 Intake Total 1374 Output Total 600 Balance 774 Weight 139 lb Intake: IV Fluids 361 NS (0.9%) 361 IVPB 113 ABX - ZOSYN 113 Oral 900 Output: Urine 500 [place] 100 Other: Date of Last Bowel 11/01/47 Movement # Bowel Movements 1 Estimated Stool Amount Large Labs: 11/01/17 11/01/17 05:30 05:30 WBC 13.0 Hgb 11.1 Hct 33 Plt Count 142 INR (Anticoag Therapy) 0.93 Sodium 140 Potassium 3.7 Chloride 108 Carbon Dioxide 26 BUN 11 Creatinine 0.64 Glucose 100 Calcium 8.2 Studies: None today Nutrition: Oral diet Impression: Bacteremic pneumococcal pneumonia in a patient with end-stage pulmonary fibrosis. Plan: I have spoken with transplant team at [facility] (Dr. Nikolai Portillo of pulmonary service, and Alka Johnson, the coordinator of placement) and they will accept the patient in transfer when the clinical condition has stabilized (i.e. , increasing O2 requirement is concerning). I will update them daily until transfer is feasible. In meantime, will adjust inhaled O2 to maintain SpO2 of 88 -92%, and will continue IV ceftriaxone at 2 gm daily. Patient is aware of the current situation, and our management plan. Critical Care Time: 40 minutes (not including time spent discussing case with [facility]).
[2017-11-01] MEDS: PTO: Budesonide/Formote 160/4.5(NF) MDI INH SCH (19:58)
[2017-11-01] MEDS ORDERED: traZODone TAB* 100 MG PO SCH (21:00)
[2017-11-01] MEDS: QUEtiapine TAB* 100 MG PO SCH (21:25)
[2017-11-02] MEDS: Albuterol/Ipratropium NEB.SOL* Albuterol 2.5 MG/Ipratropium 0.5 MG 3 ML INH SCH ×4 (03:41→20:10)
[2017-11-02 07:48] LABS: Hematocrit 31 % (35-47); Hemoglobin 10.5 g/dl (12.0-16.0); Mean Corpuscular HGB Conc 34 g/dl (31-36); Mean Corpuscular Hemoglobin 29 pg (27-31); Mean Corpuscular Volume 86 fL (80-97); Mean Platelet Volume 9.1 um3 (7.4-10.4); Platelet Count 130 10^3/ul (150-450); Red Blood Count 3.64 10^6/ul (4.0-5.4); Red Cell Distribution Width 14 % (10.5-15); White Blood Count 8.2 10^3/ul (3.5-10.8)
[2017-11-02 07:59] LABS: EGFR Non-African American 99.1 (>60)
[2017-11-02] MEDS ORDERED: Magnesium Sulfate 2 GM IV* 2 GM/50 ML BAG IVPB ONE (09:27)
[2017-11-02] MEDS: Hydrochlorothiazide TAB* 25 MG PO SCH (09:30)
[2017-11-02] MEDS: Omeprazole CAP* 20 MG PO SCH (09:30)
[2017-11-02] MEDS: Valsartan TAB* 160 MG PO SCH (09:30)
[2017-11-02] MEDS: Montelukast Sodium TAB* 10 MG PO SCH (09:31)
[2017-11-02] MEDS: predniSONE TAB* 20 MG PO SCH (09:31)
[2017-11-02] MEDS: Sertraline* 50 MG TAB PO SCH (09:31)
[2017-11-02] MEDS: PTO: Budesonide/Formote 160/4.5(NF) MDI INH SCH ×2 (09:34→20:10)
[2017-11-02] MEDS: cefTRIAXone(*) 2 GM in NS 0.9% 100 ML* 100 ML IVPB SCH (11:45)
--- NOTE | 2017-11-02 12:35 | PN ---
Date of Service: 11/02/17 Critical Care Services: Had an uneventful evening. This AM, is oxygenating adequately (SpO2> 90%) on O2 by aerosol mask at 5 L/min. Vital Signs: Temp Pulse Resp BP SpO2 FiO2 97.5 F 99 24 151/73 96 Physical Exam: Gen:Alert, oriented. Tachypneic but no respiratory distress. Lungs: Scattered crackles in both lungs. No change from prior exams. Extremities:No cyanosis or edema. Fluid Balance (Past 24 Hours): 11/02/17 06:59 Intake Total 1989 Output Total 2850 Balance -860 Weight 136 lb Intake: IV Fluids 1090 NS (0.9%) 1090 IVPB ABX - ZOSYN Oral 900 Output: Urine 2850 [place] Other: Date of Last Bowel Movement # Bowel Movements Estimated Stool Amount Medium # Voids Labs: 11/02/17 11/02/17 06:00 06:00 WBC 8.2 Hgb 10.5 Hct 31 MCV 86 Plt Count 130 Sodium 141 Potassium 3.3 Chloride 104 Carbon Dioxide 31 BUN 9 Creatinine 0.60 Glucose 92 Calcium 8.7 Procalcitonin 0.6 Studies: None today Nutrition: Oral diet - intake adequate. Impression: Has improved (i.e., has defervesced, leukocytosis has resolved, and O2 requirement has declined). Plan: Continue IV ceftriaxone for now. Although procalcitonin is not high, would probably give at least 5-7 days of IV antibiotics because of the bacteremia. Will also replace potassium and magnesium. I have spoken with Dr. Landeros at [facility] and we both agree that patient can be safely transferred when a bed is available.
[2017-11-02] MEDS ORDERED: NS 0.9% 100 ML* 100 ML ONE (12:53)
[2017-11-02] MEDS: Lactobacillus Acidophilus* 1 TAB PO SCH ×2 (13:32→20:01)
[2017-11-02] MEDS: ALPRAZolam TAB* 0.25 MG PO PRN (13:32)
[2017-11-02] MEDS: Enoxaparin(*) 40 MG/0.4 ML SYR SUBCUT SCH (16:03)
[2017-11-02] MEDS: Famotidine TAB* 20 MG PO SCH (20:01)
[2017-11-02] MEDS: QUEtiapine TAB* 100 MG PO SCH (20:01)
[2017-11-02] MEDS: Potassium Chlor TAB* 20 MEQ TAB.ER PO SCH (20:01)
[2017-11-02] MEDS ORDERED: Vancomycin Trough Check NOTE FOLLOW UP ONE (21:30)
[2017-11-03] MEDS: Albuterol/Ipratropium NEB.SOL* Albuterol 2.5 MG/Ipratropium 0.5 MG 3 ML INH SCH ×4 (01:13→19:44)
[2017-11-03] MEDS: guaiFENesin/CODIEN 100MG-10MG* 5 ML UDC PO PRN ×2 (05:30→16:47)
[2017-11-03 05:40] LABS: EGFR Non-African American 107.3 (>60)
[2017-11-03] MEDS: PTO: Budesonide/Formote 160/4.5(NF) MDI INH SCH ×2 (08:17→19:44)
[2017-11-03] MEDS: Lactobacillus Acidophilus* 1 TAB PO SCH ×2 (09:28→20:40)
[2017-11-03] MEDS: Hydrochlorothiazide TAB* 25 MG PO SCH (09:28)
[2017-11-03] MEDS: Montelukast Sodium TAB* 10 MG PO SCH (09:29)
[2017-11-03] MEDS: Famotidine TAB* 20 MG PO SCH ×2 (09:29→20:40)
[2017-11-03] MEDS: Valsartan TAB* 160 MG PO SCH (09:29)
[2017-11-03] MEDS: Sertraline* 50 MG TAB PO SCH (09:30)
[2017-11-03] MEDS: Potassium Chlor TAB* 20 MEQ TAB.ER PO SCH ×2 (09:30→20:39)
[2017-11-03] MEDS: predniSONE TAB* 20 MG PO SCH (09:30)
[2017-11-03] MEDS: cefTRIAXone(*) 2 GM in NS 0.9% 100 ML* 100 ML IVPB SCH (12:07)
--- NOTE | 2017-11-03 13:34 | PN ---
Date of Service: 11/03/17 Critical Care Services: Had an uneventful evening. Remains on nasal O2 at 5 L/min with SpO2s in the low 90s. Vital Signs: Temp Pulse Resp BP SpO2 FiO2 97.4 F 80 25 166/91 98 Physical Exam: Gen:Alert, oriented, no respiratory distress Lungs: Diffuse crackles on both sides. Extremities: No cyanosis or edema Fluid Balance (Past 24 Hours): 11/03/17 06:59 Intake Total 2080 Output Total 3650 Balance -1570 Weight 134 lb Intake: IV Fluids 108 NS (0.9%) 108 IVPB 172 ABX - ZOSYN NS (0.9%) 172 Oral 1800 Output: Urine 3650 [place] Other: Estimated Void Large Date of Last Bowel Movement # Bowel Movements 1 Estimated Stool Amount Small # Voids 2 Labs: 11/03/17 05:16 Sodium 142 Potassium 3.5 Chloride 104 Carbon Dioxide 32 Anion Gap 6 BUN 11 Creatinine 0.56 Glucose 87 Calcium 9.0 Magnesium 2.3 Studies: None today Nutrition: Oral feeding Impression: Continues to improve. Awaiting a bed at [facility]. Plan: Continue IV antibiotics (day 4). (Probably should give at least 5 days of pareneteral antibiotics because of bacteremia). Patient can go to floor soon.
[2017-11-03] MEDS: Enoxaparin(*) 40 MG/0.4 ML SYR SUBCUT SCH (14:35)
[2017-11-03] MEDS: ALPRAZolam TAB* 0.25 MG PO PRN (20:39)
[2017-11-03] MEDS: QUEtiapine TAB* 100 MG PO SCH (20:39)
[2017-11-03] MEDS: Lidocaine 2% JELLY* 6 ML JELLY TOPICAL PRN (20:40)
[2017-11-03] MEDS ORDERED: LORazepam INJ* 2 MG/ML 1 ML VIAL IV ONE (23:06)
[2017-11-04] MEDS: Albuterol/Ipratropium NEB.SOL* Albuterol 2.5 MG/Ipratropium 0.5 MG 3 ML INH SCH ×4 (01:13→19:35)
[2017-11-04] MEDS: guaiFENesin/CODIEN 100MG-10MG* 5 ML UDC PO PRN ×3 (02:04→21:42)
[2017-11-04] MEDS: Lidocaine 2% JELLY* 6 ML JELLY TOPICAL PRN ×5 (02:25→21:42)
[2017-11-04] MEDS: PTO: Budesonide/Formote 160/4.5(NF) MDI INH SCH ×2 (07:20→19:36)
[2017-11-04] MEDS: Potassium Chlor TAB* 20 MEQ TAB.ER PO SCH ×2 (09:54→21:24)
[2017-11-04] MEDS: Famotidine TAB* 20 MG PO SCH ×2 (09:54→21:24)
[2017-11-04] MEDS: Montelukast Sodium TAB* 10 MG PO SCH (09:54)
[2017-11-04] MEDS: Sertraline* 50 MG TAB PO SCH (09:55)
[2017-11-04] MEDS: predniSONE TAB* 20 MG PO SCH (09:55)
[2017-11-04] MEDS: Lactobacillus Acidophilus* 1 TAB PO SCH ×2 (09:55→21:24)
[2017-11-04] MEDS: Hydrochlorothiazide TAB* 25 MG PO SCH (09:55)
[2017-11-04] MEDS: Valsartan TAB* 160 MG PO SCH (09:55)
[2017-11-04] MEDS: cefTRIAXone(*) 2 GM in NS 0.9% 100 ML* 100 ML IVPB SCH (11:15)
--- NOTE | 2017-11-04 11:20 | PN ---
Progress Note - Progress Note Date of Service: 11/04/17 Note: Patient had an uneventful evening, and is oxygenating adequately on inhaled O2 at 5 L/min. She is tachypneic but shows no respiratory distress. She has been afebrile since the day of admission (10/31) and leukocytosis has resolved. The bacteremic pneumococcal pneumonia is being treated with IV ceftriaxone (day 4 of therapy). VS: T=98, GW=051/70, P=72, R=24, SpO2 = 99% (on O2 at 5 L/min) PHYSICAL EXAM: Gen: alert, oriented - up in bed eating breakfast. Lungs: Scattered crackles in both lungs, primarily at the bases. Extremities: No cyanosis or edema. LABS: None today IMPRESSION: Continues to improve PLAN: Will transfer out of ICU to continue IV antibiotics for at least one more day. Will need repeat blood cultures when antibiotic Rx has completed, to document clearing of the bacteremia. As far as transfer to [facility] is concerned, they have not contacted us regarding a bed, but transfer is probably not necessary at this point, since patient is much better, and will probably be discharged in a few days. Contacts at [facility]: Alka Johnson (hearing screen coordinator): [phone] or [phone] (cell) and Dr. Nikolai Portillo (pulmonary): [phone] (cell)
--- NOTE | 2017-11-04 12:52 | DS ---
67 y/o female with end-stage pulmonary fibrosis who was admitted on 10/31 with bacteremic pneumococcal pneumonia and increased O2 requirements (was originally on high-flow humidified O2 at 15-20 L/min). CXR showed diffuse pulmonary infiltrates, so it was difficult to localize the pneumonia. Has been treated with ceftriaxone (2 gm IV daily) and has shown steady improvement; i.e., no fever since 10/31, leukocytosis has resolved, O2 requirement has decreased to 5 L /min, and procalcitonin level (11/03) is down to 0.6. Our plan is to give at least 5 days of IV antibiotics (because of the bacteremia), then complete the treatment with PO meds, and reculture when antibiotic Rx is completed. Patient is being evaluated for a lung transplant at [facility], and will be transferred there for further management. On day of transfer, patient was up and eating a full breakfast. Vital Signs: T= 98, MK=537/70, P=72 (regular), RR=18, SpO2 = 96% on nasal O2 at 5 L/min. Final Diagnoses: 1. Community-acquired, bacteremic, pneumococcal pneumonia - possibly involving both lungs. 2. Advanced, idiopathic pulmonary fibrosis 3. ? Reversible airways disease 4. Hypoxemic respiratory failure: [id number] 5. Hypertension Meds on Transfer: Ceftriaxone, 2 gm IV daily Prednisone: 40 mg PO daily Losartan/HCTZ: 160/12.5 mg PO daily Albuterol/Ipatropium nebs q 6h Symbicort (160/4.5) 2 puffs BID Singulair: 10 mg PO daily Enoxaparin: 40 mg subQ daily Famotidine: 20 mg PO BID Alprazolam: 0.25 mg PO TID PRN
[2017-11-04] MEDS: ALPRAZolam TAB* 0.25 MG PO PRN (15:10)
[2017-11-04] MEDS: Enoxaparin(*) 40 MG/0.4 ML SYR SUBCUT SCH (15:10)
[2017-11-04] MEDS: QUEtiapine TAB* 100 MG PO SCH (21:24)
[2017-11-04] MEDS ORDERED: Zinc Oxide 16% PASTE* (Butt Paste) 1 TUBE TOPICAL PRN (22:15)
[2017-11-05] MEDS: Albuterol/Ipratropium NEB.SOL* Albuterol 2.5 MG/Ipratropium 0.5 MG 3 ML INH SCH ×3 (01:21→13:54)
[2017-11-05] MEDS: PTO: Budesonide/Formote 160/4.5(NF) MDI INH SCH (08:42)
[2017-11-05] MEDS: Potassium Chlor TAB* 20 MEQ TAB.ER PO SCH (08:49)
[2017-11-05] MEDS: guaiFENesin/CODIEN 100MG-10MG* 5 ML UDC PO PRN (08:49)
[2017-11-05] MEDS: ALPRAZolam TAB* 0.25 MG PO PRN (08:49)
[2017-11-05] MEDS: Montelukast Sodium TAB* 10 MG PO SCH (08:49)
[2017-11-05] MEDS: Hydrochlorothiazide TAB* 25 MG PO SCH (08:49)
[2017-11-05] MEDS: Valsartan TAB* 160 MG PO SCH (08:49)
[2017-11-05] MEDS: Famotidine TAB* 20 MG PO SCH (08:49)
[2017-11-05] MEDS: Lactobacillus Acidophilus* 1 TAB PO SCH (08:49)
[2017-11-05] MEDS: Sertraline* 50 MG TAB PO SCH (08:50)
[2017-11-05] MEDS: predniSONE TAB* 20 MG PO SCH (08:50)
[2017-11-05 10:10] VITALS: BP 108/40
[2017-11-05] MEDS: cefTRIAXone(*) 2 GM in NS 0.9% 100 ML* 100 ML IVPB SCH (11:15)
[2017-11-05] MEDS: Enoxaparin(*) 40 MG/0.4 ML SYR SUBCUT SCH (13:47)
== END 2017-11-05 16:25 | disposition short-term general hospital (02) | DRG 193 ==
LOC: ICU 13:23 → MEDTELE 11-05 10:01
PROVIDERS: ADMIT Internal Medicine; ATTEND Internal Medicine
DX: J13 Pneumonia due to Streptococcus pneumoniae (principal); J96.21 Acute and chronic respiratory failure with hypoxia; J84.112 Idiopathic pulmonary fibrosis; I10 Essential (primary) hypertension; Z79.2 Long term (current) use of antibiotics; Z79.52 Long term (current) use of systemic steroids; Z79.899 Other long term (current) drug therapy
CPT/HCPCS: 36415; 71045; 80048; 80053; 80202; 83735; 84145; 85025; 85027; 85610; 87040; 87641; 94640; 94760; A9270-GY; J0696; J1650; J2060; J2270; J2543; J3370; J3475; J7512